=== PATIENT | male | born 1930 | race Hispanic/Latino ===

== ENCOUNTER → 2017-06-27 | Outpatient (CLI) | payer OTHER ==
[~2017-06-27] MED LIST: BUDE10.22 IH; TAMS0.4C32 PO; VALS40TA10 PO
== END | disposition home or self-care (01) ==
LOC: RAH 08:49
PROVIDERS: ATTEND Internal Medicine
DX: J44.9 Chronic obstructive pulmonary disease, unspecified (principal)
CPT/HCPCS: 71046